=== PATIENT | female | born 1995 | race Asian ===

== ENCOUNTER 2017-03-11 21:47 | Emergency (ER) | payer OTHER ==
[~2017-03-11] VITALS: Ht 142.2 cm; Wt 42.2 kg
[2017-03-11] MEDS ORDERED: KETOROLAC TROMETHAMINE 30 MG/ML INJ. IV ONE (22:45)
[2017-03-11 23:01] LABS: BASO % 0 % (0-3); EOS % 7 % (0-3); HEMATOCRIT 36.9 % (36.0-47.0); LYMPH # 2.2 x10^3/uL (1.0-4.8); LYMPH % 34 % (24-48); MEAN CORPUSCULAR HEMOGLOBIN 26 pg (25-35); MEAN CORPUSCULAR HGB CONC 33 g/dL (31-37); MEAN CORPUSCULAR VOLUME 80 fL (79-100); MONO % 9 % (0-9); NEUT % 50 % (31-73); PLATELET COUNT 259 x10^3/uL (140-400); RED BLOOD COUNT 4.64 x10^6/uL (3.50-5.40); RED CELL DISTRIBUTION WIDTH 16.3 % (11.5-14.5); WHITE BLOOD COUNT 6.4 x10^3/uL (4.0-11.0)
[2017-03-11 23:15] LABS: CALCIUM 8.9 mg/dL (8.5-10.1); CREATININE 0.7 mg/dL (0.6-1.0); GFR 104.6; POTASSIUM 3.4 mmol/L (3.5-5.1)
[2017-03-11 23:21] LABS: ALBUMIN 3.5 g/dL (3.4-5.0); ALBUMIN/GLOBULIN RATIO 0.9 (1.0-1.7); TOTAL BILIRUBIN 0.3 mg/dL (0.2-1.0); TOTAL PROTEIN 7.4 g/dL (6.4-8.2)
[2017-03-11] MEDS ORDERED: LIDO:MAALOX:DONNATAL 1:1:1 15 ML SINGLE DOSE SWSW ONE (23:30)
[2017-03-11] MEDS ORDERED: POTASSIUM CHLORIDE 20 MEQ/15 ML ORAL LIQUID. PO ONE (23:45)
[2017-03-11 23:56] VITALS: BP 101/58
[2017-03-12] MEDS ORDERED: RANI150T6 PO (00:07)
--- NOTE | 2017-03-12 00:07 | PHYS DOC ---
Past Medical History Past Medical History: GERD Past Surgical History: No Surgical History Alcohol Use: None Drug Use: None Adult General Chief Complaint Chief Complaint: CHEST WALL PAIN HPI HPI Patient is a 22 year old female who presents with chest pain. The patient reports 1 week history of constant sharp stabbing midsternal chest pain. Denies radiation of pain, worsens with deep breathing. Denies shortness of breath, nausea, diaphoresis. Denies fevers/chills, cough, vomiting, abdominal pain, lower extremity pain/swelling. She notes a generalized headache x 3 days , not sudden in onset & not the worst headache of her life. She reports previous history of similar pain associated with suspected gastric ulcer but has not followed up for EGD or further evaluation. Otherwise previously healthy , nonsmoker, denies use of control, recently flew here from [place]. Review of Systems Review of Systems Constitutional: Denies fever or chills Eyes: Denies change in visual acuity HENT: Denies nasal congestion or sore throat Respiratory: Denies cough or shortness of breath Cardiovascular: Reports chest pain, denies edema. GI: Denies abdominal pain, nausea, vomiting, or diarrhea Musculoskeletal: Denies back pain or joint pain Integument: Denies rash Neurologic: Reports headache, denies focal weakness or sensory changes Current Medications Current Medications Current Medications Medications (Trade) Dose Ordered Sig/Jax Start Time Stop Time Status Last Admin Dose Admin Ketorolac Tromethamine (Toradol) 30 mg 1X ONCE 03/11/17 22:45 03/11/17 22:46 DC 03/11/17 22:50 30 MG Multi-Ingredient Mouthwash/Gargle (Gi Cocktail Single Dose) 15 ml 1X ONCE 03/11/17 23:30 03/11/17 23:31 DC 03/11/17 23:30 15 ML Potassium Chloride (KCl Oral Soln) 40 meq 1X ONCE 03/11/17 23:45 03/11/17 23:46 DC 03/11/17 23:45 40 MEQ Allergies Allergies Allergies Coded Allergies Type Severity Reaction Last Updated Verified No Known Drug Allergies 03/11/17 No Physical Exam Physical Exam Constitutional: Well developed, well nourished, no acute distress, non-toxic appearance. HENT: Normocephalic, atraumatic, bilateral external ears normal, oropharynx moist, nose normal. Eyes: PERRLA, EOMI, conjunctiva normal, no discharge. Neck: supple, no stridor. no meningismus Cardiovascular: RRR, no murmurs, no edema. Lungs & Thorax: LCTAB, no wheezing, no respiratory distress. reproducible tenderness with palpation over the sternum. Abdomen: soft, nontender, nondistended. Skin: Warm, dry, no erythema, no rash. Back: No tenderness. Extremities: No tenderness, no edema. no calf tenderness or swelling. Neurologic: Alert and oriented X 3, no focal deficits noted. Psychologic: Affect normal, judgement normal, mood normal. Current Patient Data Vital Signs Vital Signs Date Time Temp Pulse Resp B/P (MAP) Pulse Ox O2 Delivery O2 Flow Rate FiO2 03/11/17 23:56 78 23 101/58 (72) 100 Room Air 03/11/17 21:50 98.6 98.6 Lab Values Laboratory Tests Test 03/11/17 21:24 03/11/17 22:45 POC Urine HCG, Qualitative Hcg negative (Negative) White Blood Count 6.4 x10^3/uL (4.0-11.0) Red Blood Count 4.64 x10^6/uL (3.50-5.40) Hemoglobin 12.0 g/dL (12.0-15.5) Hematocrit 36.9 % (36.0-47.0) Mean Corpuscular Volume 80 fL (79-100) Mean Corpuscular Hemoglobin 26 pg (25-35) Mean Corpuscular Hemoglobin Concent 33 g/dL (31-37) Red Cell Distribution Width 16.3 % (11.5-14.5) H Platelet Count 259 x10^3/uL (140-400) Neutrophils (%) (Auto) 50 % (31-73) Lymphocytes (%) (Auto) 34 % (24-48) Monocytes (%) (Auto) 9 % (0-9) Eosinophils (%) (Auto) 7 % (0-3) H Basophils (%) (Auto) 0 % (0-3) Neutrophils # (Auto) 3.2 x10^3uL (1.8-7.7) Lymphocytes # (Auto) 2.2 x10^3/uL (1.0-4.8) Monocytes # (Auto) 0.6 x10^3/uL (0.0-1.1) Eosinophils # (Auto) 0.4 x10^3/uL (0.0-0.7) Basophils # (Auto) 0.0 x10^3/uL (0.0-0.2) D-Dimer (Rita) < 0.27 ug/mlFEU Sodium Level 140 mmol/L (136-145) Potassium Level 3.4 mmol/L (3.5-5.1) L Chloride Level 105 mmol/L (98-107) Carbon Dioxide Level 29 mmol/L (21-32) Anion Gap 6 (6-14) Blood Urea Nitrogen 7 mg/dL (7-20) Creatinine 0.7 mg/dL (0.6-1.0) Estimated GFR (Cockcroft-Gault) 104.6 BUN/Creatinine Ratio 10 (6-20) Glucose Level 108 mg/dL (70-99) H Calcium Level 8.9 mg/dL (8.5-10.1) Total Bilirubin 0.3 mg/dL (0.2-1.0) Aspartate Amino Transferase (AST) 19 U/L (15-37) Alanine Aminotransferase (ALT) 21 U/L (14-59) Alkaline Phosphatase 87 U/L (46-116) Troponin I Quantitative < 0.017 ng/mL (0.000-0.055) Total Protein 7.4 g/dL (6.4-8.2) Albumin 3.5 g/dL (3.4-5.0) Albumin/Globulin Ratio 0.9 (1.0-1.7) L Lipase 212 U/L (73-393) Laboratory Tests 03/11/17 22:45 Laboratory Tests 03/11/17 22:45 EKG EKG interpreted by me: NSR rate 78, no acute ST/T wave changes, normal intervals, no ectopy.[] Radiology/Procedures Radiology/Procedures CXR: interpreted by me: no cardiomegaly, no infiltrate, no pneumothorax. no acute process.[] Course & Med Decision Making Course & Med Decision Making Pertinent Labs and Imaging studies reviewed. (See chart for details) Patient presents with chest pain. Gave pain medication and GI cocktail here. She felt better after treatment. No significant abnormality identified on workup here. She had recent airplane travel, d-dimer was negative. Vitals were stable, will not pursue further workup for PE. PERC is 0. HEART score is 0, low risk. Recommend rest, PO hydration, tylenol or ibuprofen for pain, zantac for GERD, follow up with PCP when she returns home to [place] next week. Come back for severe shortness of breath or chest pain, severe abdominal pain, uncontrolled vomiting, blood in emesis or stools, any otherwise worsening condition. Discharged home in stable condition. [] Dragon Disclaimer Dragon Disclaimer This electronic medical record was generated, in whole or in part, using a voice recognition dictation system. Departure Departure Impression: Primary Impression: Chest pain Disposition: HOME, SELF-CARE Condition: STABLE Referrals: NO PCP (PCP) Patient Instructions: Chest Pain (Nonspecific), [id number] Additional Instructions: You were seen in the emergency department today for chest pain. Tests here did not show serious cause of symptoms. This could be stomach inflammation or muscle pain. Please rest, drink fluids, take Tylenol or ibuprofen for pain. Try taking Zantac. Follow-up with a primary care doctor when you get home. Return to the emergency department for high fever, severe pain, uncontrolled vomiting or blood in your vomit or stools, severe shortness of breath, any otherwise worsening condition. Scripts Ranitidine Hcl (ZANTAC) 150 Mg Tablet 150 MG PO DAILY for 14 Days, #14 TAB Prov: JULIO CÉSAR AMADOR MD 03/12/17 JULIO CÉSAR AMADOR MD March 12, 2017 00:07
--- NOTE | 2017-03-12 07:51 | RAD ---
Indication: Chest pain for a week, cough for one day. Technique: Two-view chest radiograph was obtained. Comparison is from April 20, 2011. Findings: The lungs are clear. The cardiopulmonary silhouette is within normal limits. There is no pleural effusion. The bony structures are intact. Leads overlie the patient. Impression: No acute thoracic findings.
--- NOTE | 2017-03-12 10:05 | EKG ---
[facility] [address] [place] [address] Test Date: 2017-03-11 Test Time: 21:54:38 Pat Name: LUPIS RIOS Department: Room: Gender: F Assistant Manager Retail: : 1995 Requested By: JULIO CÉSAR AMADOR Order Number: [id number] Reading MD: Measurements Intervals Wiggins Rate: 78 P: 52 GA: 130 QRS: 56 QRSD: 68 T: 14 QT: 366 QTc: 421 Interpretive Statements SINUS RHYTHM NORMAL ECG RI6.01 Unconfirmed report No previous ECG available for comparison
== END 2017-03-12 00:20 | disposition home or self-care (01) ==
LOC: ER 22:51
DX: R07.9 Chest pain, unspecified (principal); K21.9 Gastro-esophageal reflux disease without esophagitis
CPT/HCPCS: 36415; 71020; 80053; 83690; 84484; 84703; 85027; 85379; 93005; 96374; 99285; J1885; 81025

== ENCOUNTER 2018-06-03 12:20 | Emergency (ER) | payer OTHER ==
[~2018-06-03] VITALS: Ht 147.3 cm; Wt 47.2 kg
[~2018-06-03 12:20] MED LIST: RANI150T21 PO
--- NOTE | 2018-06-03 13:03 | PHYS DOC ---
Past Medical History Past Medical History: GERD Past Surgical History: No Surgical History Alcohol Use: None Drug Use: None Adult General Chief Complaint Chief Complaint: HAND PROBLEM HPI HPI Patient is a 23 year old female with history of acid reflex presents today complaining of mild intermittent throbbing pain on the dorsal aspect of her left hand that has been going on for one week. Patient states the pain is worse on range of motion. Denies any known injury. She states she is a [id number] mother. Patient denies taking anything for her symptoms. She is also complaining of a cough and itchy throat for one week. Denies any fever. Denies any nasal congestion. Patient is right-handed. Review of Systems Review of Systems Constitutional: Denies fever or chills [] Eyes: Denies change in visual acuity, redness, or eye pain [] HENT: Reports itchy throat. Denies nasal congestion Respiratory: Reports cough, shortness of breath [] Cardiovascular: No additional information not addressed in HPI [] GI: Denies abdominal pain, nausea, vomiting, bloody stools or diarrhea [] : Denies dysuria or hematuria [] Musculoskeletal: Reports left hand pain Integument: Denies rash or skin lesions [] Neurologic: Denies headache, focal weakness or sensory changes [] All other systems were reviewed and found to be within normal limits, except as documented in this note. Allergies Allergies Allergies Coded Allergies Type Severity Reaction Last Updated Verified No Known Drug Allergies 03/11/17 No Physical Exam Physical Exam Constitutional: Well developed, well nourished, no acute distress, non-toxic appearance. [] HENT: Normocephalic, atraumatic, bilateral external ears normal, oropharynx moist, no oral exudates, nose normal. [] Eyes: PERRLA, EOMI, conjunctiva normal, no discharge. [] Neck: Normal range of motion, no tenderness, supple, no stridor. [] Cardiovascular:Heart rate regular rhythm, no murmur [] Lungs & Thorax: Bilateral breath sounds clear to auscultation [] Abdomen: Bowel sounds normal, soft, no tenderness, no masses, no pulsatile masses. [] Skin: Warm, dry, no erythema, no rash. [] Back: No tenderness, no CVA tenderness. [] Extremities: Left hand with no obvious deformity. No edema, no ecchymosis, no tenderness on exam. Full range of motion to the left hand and fingers. +2 left radial pulse. Adequate radial medial sensation to the left upper extremity. Cap refill less than 2 seconds and left fingers. Neurologic: Alert and oriented X 3, normal motor function, normal sensory function, no focal deficits noted. [] Psychologic: Affect normal, judgement normal, mood normal. [] Current Patient Data Vital Signs Vital Signs Date Time Temp Pulse Resp B/P (MAP) Pulse Ox O2 Delivery O2 Flow Rate FiO2 06/03/18 12:42 98.3 76 20 101/61 (74) 100 Room Air 98.3 Lab Values Laboratory Tests Test 06/03/18 12:48 POC Urine HCG, Qualitative Hcg negative (Negative) EKG EKG [] Radiology/Procedures Radiology/Procedures []PROCEDURE: HAND LEFT 3V Left hand, 3 views, 06/03/2018: HISTORY: Hand pain No fracture or dislocation is identified. No significant arthritic change is evident. IMPRESSION: No significant bony abnormality is detected. Electronically signed by: Bhanu Horner MD (06/03/2018 1:27 PM) [facility] DICTATED and SIGNED BY: BHANU HORNER MD DATE: 06/03/18 9234 Course & Med Decision Making Course & Med Decision Making Pertinent Labs and Imaging studies reviewed. (See chart for details) This is a 23-year-old female patient presented to the ED today with left hand pain, no known injury. Patient also complaining of a cough and itchy throat- symptoms likely viral or seasonal allergies, discharged with Zyrtec for this. Left hand x-rays interpreted by radiologist are negative for any acute findings. Patient was discharged with diclofenac for pain. Instructed to ice and elevate the extremity. Follow-up with orthopedic doctor in one week if symptoms continue or primary care doctor. Dragon Disclaimer Dragon Disclaimer This electronic medical record was generated, in whole or in part, using a voice recognition dictation system. Departure Departure Impression: Primary Impression: Left hand pain Additional Impressions: Cough Acute viral pharyngitis Disposition: 01 HOME, SELF-CARE Condition: STABLE Referrals: UNKNOWN PCP NAME (PCP) RAMIRO PINK MD follow up in 1 week Patient Instructions: Cough, Adult, [id number], Musculoskeletal Pain, Viral Pharyngitis Additional Instructions: You were seen for left hand pain, your left hand x-rays are negative for any acute findings. Use the prescribed medications as ordered. You were also seen for cough and itchy throat. We wrote you prescription medicine for this. Take it as prescribed. Follow-up with your doctor the provided doctor in 1-2 weeks. Scripts Naproxen (NAPROXEN) 375 Mg Tablet 1 TAB PO BID, #30 TAB 0 Refills Prov: MARGARETTE HAWKINS APRN 06/03/18 Methylprednisolone (MEDROL) 4 Mg Tab.ds.pk 1 PKG PO UD, #1 PKG Prov: MARGARETTE HAWKINS APRN 06/03/18 Cetirizine Hcl (ZYRTEC) 10 Mg Tablet 1 TAB PO DAILY, #30 TAB 2 Refills Prov: MARGARETTE HAWKINS APRN 06/03/18 Diclofenac Sodium (VOLTAREN) 100 Gm Gel..gram. 1 GM TP QID, #100 GM 2 Refills Prov: MARGARETTE HAWKINS APRN 06/03/18 Benzonatate (TESSALON PERLE) 100 Mg Capsule 1 CAP PO TID, #30 CAP Prov: MARGARETTE HAWKINS APRN 06/03/18 Problem Qualifiers MARGARETTE HAWKINS APRN Jun 03, 2018 13:03
--- NOTE | 2018-06-03 13:31 | RAD ---
Left hand, 3 views, 06/03/2018: HISTORY: Hand pain No fracture or dislocation is identified. No significant arthritic change is evident. IMPRESSION: No significant bony abnormality is detected. Electronically signed by: Bhanu Horner MD (06/03/2018 1:27 PM) [facility]
[2018-06-03] MEDS ORDERED: NAPR-695 PO (13:38)
[2018-06-03] MEDS ORDERED: METH4TAB2 PO (13:38)
[2018-06-03] MEDS ORDERED: BENZ100C PO (13:38)
[2018-06-03] MEDS ORDERED: DICL100G18 TP (13:38)
[2018-06-03] MEDS ORDERED: CETI10TA22 PO (13:38)
[2018-06-03 13:55] VITALS: BP 117/55
== END 2018-06-03 13:55 | disposition home or self-care (01) ==
LOC: ER 12:20
DX: M79.642 Pain in left hand (principal); J02.8 Acute pharyngitis due to other specified organisms; B97.89 Other viral agents as the cause of diseases classified elsewhere; K21.9 Gastro-esophageal reflux disease without esophagitis
CPT/HCPCS: 73130; 81025; 99284